=== PATIENT | female | born 1990 | race Caucasian/White ===

== ENCOUNTER 2024-08-17 09:40 | Outpatient (CLI) | payer BC, SELFPAY ==
--- NOTE | 2024-08-17 10:00 | US_ITS ---
PROCEDURE: US TRANSVAGINAL CLINICAL INDICATION: needs 08/17/2024 for RT ovarian cyst COMPARISON: No exams were available for comparison FINDINGS: Transvaginal and transabdominal sonographic images of the pelvis were obtained. UTERUS: Surgically absent Vaginal vault is intact. LEFT OVARY: 3.9 cmx2.0cmx2.3cm with a volume of 9.4ml. There appears to be a small follicle in the left ovary. RIGHT OVARY: 6.0cmx 6.1cmx3.3cm with a volume of 62.2ml. Within the right ovary there is a cyst measuring 5.9 cm x 5.0 cm x 2.8 cm. It has a simple appearance. It was only seen transabdominally. Both ovaries are seen. Doppler flow to both ovaries are seen. There is no fluid in the cul-de-sac. IMPRESSION: 1. The uterus is surgically absent. The vaginal vault is intact. 2. The left ovary is seen and appears normal. There is a small follicle. 3. The right ovary is only seen transabdominally. There is a 5.9 cm simple cyst in the right ovary. Suggest follow-up in 3 months. Dictated by: Chirag Christie MD 08/17/2024 15:10 Chirag Christie MD in [place] 08/17/2024 15:10
== END 2024-08-17 23:59 | disposition home or self-care (01) ==
LOC: RAD 09:41
PROVIDERS: PCP Nurse Practitioner Family; Visit Provider Nurse Practitioner Obstetrics & Gynecology
DX: N83.02 Follicular cyst of left ovary (principal); N83.201 Unspecified ovarian cyst, right side; Z90.710 Acquired absence of both cervix and uterus
CPT/HCPCS: 76830

== ENCOUNTER 2025-01-10 14:48 | Outpatient (CLI) | payer BC, SELFPAY ==
--- NOTE | 2025-01-10 15:00 | US_ITS ---
PROCEDURE: US TRANSVAGINAL CLINICAL INDICATION: 6mo f/u on ovarian cyst COMPARISON: US US TRANSVAGINAL from 08/17/2024 FINDINGS: Transvaginal sonographic images of the pelvis were obtained. UTERUS: The uterus is surgically absent. The vaginal vault is intact. LEFT OVARY: 3.6 cmx1.7 cmx1.6cm with a volume of 5.2ml. RIGHT OVARY: 5.2cmx 4.6 cmx3.4cm with a volume of 41.4ml. The right ovary is only seen transabdominally. There is a cyst within the right ovary that has a ground-glass appearance and debris. It measures 4.6 cm x 2.8 cm x 4.1 cm. It has diminished in size since her ultrasound 6 months ago. Possible hemorrhagic ovarian cyst. Both ovaries are seen.. Doppler flow to both ovaries are seen. There is no fluid in the cul-de-sac. IMPRESSION: 1. The uterus is surgically absent. The vaginal vault is intact. 2. The left ovary is seen and appears normal. 3. The right ovary is only seen transabdominally. It contains a 4.6 cm cyst that is filled with debris possibly a hemorrhagic ovarian cyst. There is a ground-glass appearance to the cyst as well. It seems to be smaller than her last ultrasound 6 months ago 4. Would suggest repeat scan in 6 months again. 5. No fluid in the cul-de-sac. Dictated by: Chirag Christie MD 01/10/2025 16:49 Chirag Chritsie MD in [facility] 01/10/2025 16:49
--- OUTSIDE RECORDS SUMMARY | 2025-01-10 15:03 | XMS_ITS | Clinical Summary ---
[facility] [address] [place] [address] Care Team Providers Care Computer Lab Aide Name Role Phone Carmen Reeder Primary Care Provider [phone] Allergies No known active allergies Medications cetirizine (zyrTEC) 10 MG tablet Take 10 mg by mouth Daily. Active lamoTRIgine (LAMICTAL PO) Take by mouth. Active Active Problems No known active problems Social History Tobacco Use Types Packs/Day Years Used Date Smoking Tobacco: Never Abuse Screen Answer Date Recorded Unsafe at Home or Work/School Not on file Feels Threatened by Someone? Not on file 01/2023 Does Anyone Keep You from Co ntacting Others or Doint Things Outside the Home? Not on file 12/24/2022 Physical Sign of Abuse Present Not on file 1 Housing Stability Answer Date Recorded Current Living Arrangements Not on file 12/14 Potentially Unsafe Housing Conditions Not on thomas e 12/24/2022 Family and Community Support Answer Giuseppe e Recorded Help with Day-to-Day Activities Not on file 12/24/2022 Lonely or Isolated Not on file 12/24/2022 Employment Answer Date Recorded Do you want help finding or keeping work or a madelyn b? Not on file 12/24/2022 Disabilities Answer Date Recorded Concentrating, Remembering, or Making Decisions Difficulty Not on file 12/24/2022 Doing Errands Independently Difficulty Not on fi le 12/24/2022 Education Answer Date Recorded Help with school or training? Not on file Preferred Language Not on file 12/24/2022 Comments No Sex and Gender Information Value Date Recorded Sex Assigned at Not on file Legal Sex Female 3:08 PM EDT Gender Identity Not on file Sexual Orientation Not on file Last Filed Vital Signs Vital Sign Reading Time Taken Comments Blood Pressure - - Pulse 77 12/03/2018 3:23 PM EDT Temperature 36.4 C (97.5 F) 12/03/2018 3:23 PM EDT Respiratory Rate 15 12/03/2018 3:23 PM EDT Oxygen Saturation 99% 12/03/2018 3:23 PM EDT Inhaled Oxygen Concentration - - Weight 53.5 kg (118 lb) 12/03/2018 3:23 PM EDT Height 165.1 cm (5' 5 ) 12/03/2018 3:23 PM EDT Body Mass Index 19.64 12/03/2018 3:23 PM EDT Plan of Treatment Health Maintenance Due Date Last Done Comments Annual Gynecologic Pelvic an d Breast Exam 1992 TDAP/TD VACCINES (1 - Tdap) 11/09/2011 ANNUAL PHYSICAL 11/12/2016 HEPATITIS C SCREENING 11/12/2016 INFLUENZA VACCINE 10/14/2024 Pneumococcal Vaccine 0-49 Aged Out No longer eligible based on patient's age to complete this topic [place] [address] [place] [address] EMPLOYEE Care Teams Computer Lab Aide Relationship Specialty Start Date End Date Carmen Reeder PA [address] [place] [address] [place] [id number] PCP - General Family Medicine 11/12/16
== END 2025-01-10 23:59 | disposition home or self-care (01) ==
LOC: RAD 14:48
PROVIDERS: PCP Nurse Practitioner Family; Visit Provider Nurse Practitioner Obstetrics & Gynecology
DX: N83.201 Unspecified ovarian cyst, right side (principal); Z90.710 Acquired absence of both cervix and uterus
CPT/HCPCS: 76830